=== PATIENT | female | born 2000 ===

== ENCOUNTER 2021-12-29 08:28 | Inpatient (IN) | payer OTHER ==
[2021-12-29] MEDS ORDERED: Lactated Ringers 1,000 ML IV ONE (09:43)
[2021-12-29] MEDS ORDERED: Carboprost Tromethamine 250 MCG/1 ML Amp IM PRN (09:43)
[2021-12-29] MEDS ORDERED: Ondansetron 4 MG/2 ML SDV IVPUSH PRN (09:43)
[2021-12-29] MEDS ORDERED: Lidocaine 1% 30 ML SDV INJECT PRN (09:43)
[2021-12-29] MEDS ORDERED: Acetaminophen 325 MG Tab PO PRN (09:43)
[2021-12-29] MEDS ORDERED: Sodium Chloride 0.9% 10 ML Syringe FLUSH PRN (09:43)
[2021-12-29] MEDS ORDERED: Methylergonovine 0.2 MG/1 ML Amp IM PRN (09:43)
[2021-12-29] MEDS ORDERED: Misoprostol 400 MCG (4 X 100 MCG TAB) RECTAL PRN (09:43)
[2021-12-29] MEDS ORDERED: Tranexamic Acid 1,000 MG in Sodium Chloride 0.9% 100 ML IV PRN (09:43)
[2021-12-29] MEDS ORDERED: Oxytocin/Normal Saline 30 UNIT/500 ML BAG IV SCH (09:45)
[2021-12-29] MEDS: Lactated Ringers 1,000 ML IV SCH ×2 (12:55→18:37)
[2021-12-29] MEDS: Oxytocin/Normal Saline 30 UNIT/500 ML BAG IV SCH ×2 (13:00→23:25)
[2021-12-29] MEDS: fentaNYL 100 MCG/2 ML SDV IVPUSH PRN ×2 (15:35→16:58)
[2021-12-29] MEDS ORDERED: fentaNYL 100 MCG/2 ML SDV ONE ×2 (15:35→18:16)
[2021-12-29] MEDS ORDERED: fentaNYL 100 MCG/2 ML SDV ITHECAL ONE (16:20)
[2021-12-29] MEDS ORDERED: Benzocaine/Menthol 20%-0.5% Spray 78 GM Cannister TOP PRN (22:32)
[2021-12-29] MEDS ORDERED: Famotidine 20 MG Tab PO PRN (22:32)
[2021-12-29] MEDS ORDERED: Oxytocin 10 Units/1 ML SDV IM PRN (22:32)
[2021-12-29] MEDS ORDERED: Simethicone 80 MG Tab.Chew PO PRN (22:32)
[2021-12-29] MEDS ORDERED: Witch Hazel Medicated Pads 100/Jar TOP PRN (22:36)
[2021-12-29] MEDS: Docusate Sodium 100 MG Cap PO PRN (23:20)
[2021-12-29] MEDS: Ibuprofen 800 MG Tab PO PRN (23:20)
[2021-12-30] MEDS: Acetaminophen 325 MG Tab PO PRN ×3 (03:51→23:47)
[2021-12-30] MEDS: Ibuprofen 800 MG Tab PO PRN ×2 (09:25→16:19)
[2021-12-30] MEDS: Ferrous Sulfate 325 MG Tab PO SCH (09:25)
[2021-12-30] MEDS: Docusate Sodium 100 MG Cap PO PRN (09:25)
[2021-12-30] MEDS: Prenatal Multivitamin with Calcium/Folic Acid/Iron Tab PO SCH (09:25)
[2021-12-31] MEDS: Ferrous Sulfate 325 MG Tab PO SCH (08:45)
[2021-12-31] MEDS: Docusate Sodium 100 MG Cap PO PRN (08:45)
[2021-12-31] MEDS: Prenatal Multivitamin with Calcium/Folic Acid/Iron Tab PO SCH (08:45)
[2021-12-31] MEDS: Ibuprofen 800 MG Tab PO PRN (08:45)
== END 2021-12-31 11:15 | disposition home or self-care (01) | DRG 807 ==
LOC: DL.OBCHECK 08:28 → DL.OB 09:43 → OBSVTOIN 22:02
PROVIDERS: ADMIT Family Medicine; ATTEND Family Medicine
PROC: 10E0XZZ Delivery of Products of Conception, External Approach (ICD-10-PCS; principal; 2021-12-29)
PROC: 0KQM0ZZ Repair Perineum Muscle, Open Approach (ICD-10-PCS; 2021-12-29)
PROC: 3E0R3BZ Introduction of Anesthetic Agent into Spinal Canal, Percutaneous Approach (ICD-10-PCS; 2021-12-29)
PROC: 3E0R3BZ Introduction of Anesthetic Agent into Spinal Canal, Percutaneous Approach (ICD-10-PCS; 2021-12-29)
DX: O99.02 Anemia complicating childbirth (principal); Z37.0 Single live birth; D64.9 Anemia, unspecified; O70.1 Second degree perineal laceration during delivery; Z3A.40 40 weeks gestation of pregnancy; O77.0 Labor and delivery complicated by meconium in amniotic fluid; Z20.822 Contact with and (suspected) exposure to COVID-19
CPT/HCPCS: 36415; 51701; 59409; 81003; 82565; 82570; 83615; 84156; 84450; 84460; 84520; 84550; 85027; A9270-GY; J2405; J2590; J3010; J7120; U0002